=== PATIENT | female | born 1990 | race Asian ===

== ENCOUNTER 2018-01-07 19:12 | Emergency (ER) | payer MEDICAID ==
[~2018-01-07] VITALS: Ht 157.5 cm; Wt 63.6 kg
[2018-01-07 19:37] VITALS: BP 116/79
[2018-01-07 20:35] LABS: CLARITY,URINE Cloudy (Clear); COLOR,URINE Yellow (Yellow); GLUCOSE, URINE Negative (Neg); KETONES,URINE 15 mg/dl (Neg); LEUKOCYTE ESTERASE ,URINE Negative (Neg); NITRITES, URINE Negative (Neg); OCCULT BLOOD,URINE Small (Neg); PH,URINE >=9.0 (4.8-8.0); PROTEIN,URINE Negative (Neg)
[2018-01-07 20:36] LABS: UA COLLECTION TYPE CLN CATCH MIDSTREAM
[2018-01-07 20:41] LABS: BACTERIA,URINE NONE SEEN /HPF (Neg); MUCUS STRANDS NONE SEEN /LPF (Neg); SQUAMOUS EPITHELIAL CELL,UR MODERATE /LPF (FEW); WBC,URINE NONE SEEN /HPF (0-4)
[2018-01-07 20:42] LABS: AMORPHOUS PHOSPHATES 3+
[2018-01-07] MEDS ORDERED: HYDR-569 PO (20:45)
[2018-01-07] MEDS ORDERED: IBUP-1984 PO (20:45)
[2018-01-07] MEDS ORDERED: CEPH500C5 PO (20:45)
[2018-01-07] MEDS ORDERED: SULF1TAB49 PO (20:45)
== END 2018-01-07 20:51 | disposition home or self-care (01) ==
LOC: ER 19:14
DX: L02.31 Cutaneous abscess of buttock (principal); Z90.49 Acquired absence of other specified parts of digestive tract; Z79.899 Other long term (current) drug therapy; Z56.0 Unemployment, unspecified
CPT/HCPCS: 81001; 99283

== ENCOUNTER 2018-08-12 00:15 | Emergency (ER) | payer MEDICAID ==
[~2018-08-12] VITALS: Ht 157.5 cm; Wt 67.4 kg
[~2018-08-12 00:15] MED LIST: CEPH500C5 PO; HYDR-4383 PO
[2018-08-12 00:32] VITALS: BP 159/92
[2018-08-12 01:04] LABS: URINE HCG NEGATIVE (NEG)
[2018-08-12 01:07] LABS: CLARITY,URINE SLIGHTLY CLOUDY (Clear); COLOR,URINE YELLOW (Yellow); GLUCOSE, URINE NEGATIVE (Neg); KETONES,URINE >=80 mg/dl (Neg); LEUKOCYTE ESTERASE ,URINE NEGATIVE (Neg); NITRITES, URINE NEGATIVE (Neg); OCCULT BLOOD,URINE LARGE (Neg); PROTEIN,URINE 100 mg/dl (Neg); UROBILINOGEN,URINE 0.2 E.U/dL (0.2-1.0)
[2018-08-12 01:09] LABS: UA COLLECTION TYPE CLN CATCH MIDSTREAM
[2018-08-12 01:39] LABS: WBC,URINE 0-4 /HPF (0-4)
[2018-08-12 01:40] LABS: BACTERIA,URINE 2+ /HPF (Neg)
[2018-08-12 01:42] LABS: MUCUS STRANDS FEW /LPF (Neg); SQUAMOUS EPITHELIAL CELL,UR MODERATE /LPF (FEW)
[2018-08-12] MEDS ORDERED: HYDROmorphone inj. 0.5 MG/0.5 ML DISP.SYRIN IV PRN (02:05)
[2018-08-12] MEDS ORDERED: ketorolac trometh. 30mg/ml inj. IV ONE (02:05)
[2018-08-12] MEDS ORDERED: LORazepam 2 mg/ml vial IV ONE (02:05)
[2018-08-12] MEDS ORDERED: metoclopramide 5 mg/ml inj IV ONE (02:05)
[2018-08-12] MEDS ORDERED: diphenhydrAMINE 50 mg/ml inj IV ONE (02:05)
[2018-08-12] MEDS ORDERED: normal saline 1000ML IV soln IVB ONE ×3 (02:05→02:55)
[2018-08-12 02:32] LABS: ALANINE AMINOTRANSFERASE 26 U/L (12-78); ALBUMIN 4.7 G/DL (3.4-5.0); ALBUMIN/GLOBULIN RATIO 1.1 (1.1-1.5); ALKALINE PHOSPHATASE 63 IU/L (46-116); ANION GAP 21 (8-16); ASPARTATE AMINO TRANSFERASE 17 U/L (10-37); BILIRUBIN,TOTAL 1.3 MG/DL (0.1-1.0); BLOOD UREA NITROGEN 16 MG/DL (7-18); BUN/CREATININE RATIO 13.2 (6.6-38.0); CALCIUM 9.8 MG/DL (8.5-10.1); CHLORIDE 105 MMOL/L (99-107); CREATININE 1.21 MG/DL (0.40-0.90); GLUCOSE 136 MG/DL (70-104); LIPASE 79 U/L (73-393); SODIUM 145 MMOL/L (135-145); TOTAL CARBON DIOXIDE 19.2 MMOL/L (24-32); eGFR 54 ML/MIN
[2018-08-12 02:39] LABS: INR 1.1 INR
[2018-08-12] MEDS ORDERED: potassium Cl 20 mEq SR tablet PO STA (02:41)
[2018-08-12] MEDS ORDERED: ONDA4TAB12 PO (03:11)
[2018-08-12 03:37] LABS: BASOPHILS % (AUTO) 0.2 % (0-1); EOSINOPHILS % (AUTO) 0 % (0-6); HEMOGLOBIN 15.6 g/dl (12.0-16.0); LYMPHOCYTES # (AUTO) 0.6 X10'3 (1.1-4.8); LYMPHOCYTES % (AUTO) 6.2 % (21-51); MEAN CORPUSCULAR HEMOGLOBIN 31.9 PG (27.0-31.0); MEAN CORPUSCULAR HGB CONC 33.9 g/dL (33.0-36.5); MEAN CORPUSCULAR VOLUME 94.1 FL (78-98); MONOCYTES # (AUTO) 0.5 X10'3 (0-0.9); MONOCYTES % (AUTO) 5.5 % (2-12); NEUTROPHILS # (AUTO) 8.2 X10'3 (1.8-7.7); NEUTROPHILS % (AUTO) 88.1 % (42-75); PLATELET COUNT 319 X10'3 (140-440); RED BLOOD COUNT 4.89 X10'6 (4.20-5.60); RED CELL DISTRIBUTION WIDTH 12.4 % (11.5-14.5); WHITE BLOOD COUNT 9.3 X10'3 (4.5-11.0)
[2018-08-12 05:03] LABS: TOTAL CELLS COUNTED 100
[2018-08-12 05:04] LABS: PLATELET ESTIMATE NORMAL
== END 2018-08-12 03:26 | disposition home or self-care (01) ==
LOC: ER 00:16
DX: E86.0 Dehydration (principal); R11.2 Nausea with vomiting, unspecified; R19.7 Diarrhea, unspecified; R10.84 Generalized abdominal pain; Z56.0 Unemployment, unspecified; Z90.49 Acquired absence of other specified parts of digestive tract
CPT/HCPCS: 36415; 80053; 81001; 81025; 83690; 85025; 85610; 96374; 96375; 99283; J1200; J1885; J2060; J2765; J7030; 96361

== ENCOUNTER 2020-05-01 13:30 | Emergency (ER) | payer MEDICAID, OTHER ==
[~2020-05-01] VITALS: Ht 157.5 cm; Wt 72.7 kg
[~2020-05-01 13:30] MED LIST changes: -CEPH500C5 PO; +ONDA4TAB12 PO; +ONDA8TAB6 PO; +PANT-47 PO
[2020-05-01 14:09] LABS: BASOPHILS % (AUTO) 0.2 % (0-1); EOSINOPHILS % (AUTO) 0 % (0-6); HEMOGLOBIN 15.9 g/dl (12.0-16.0); LYMPHOCYTES # (AUTO) 0.7 X10'3 (1.1-4.8); LYMPHOCYTES % (AUTO) 7.7 % (21-51); MEAN CORPUSCULAR HEMOGLOBIN 32.8 PG (27.0-31.0); MEAN CORPUSCULAR HGB CONC 34.7 g/dL (33.0-36.5); MEAN CORPUSCULAR VOLUME 94.8 FL (78-98); MEAN PLATELET VOLUME 8.7 FL (7.4-10.4); MONOCYTES # (AUTO) 0.4 X10'3 (0-0.9); MONOCYTES % (AUTO) 4.7 % (2-12); NEUTROPHILS # (AUTO) 7.9 X10'3 (1.8-7.7); NEUTROPHILS % (AUTO) 87.4 % (42-75); PLATELET COUNT 346 X10'3 (140-440); RED BLOOD COUNT 4.85 X10'6 (4.20-5.60); RED CELL DISTRIBUTION WIDTH 13.5 % (11.5-14.5); WHITE BLOOD COUNT 9.1 X10'3 (4.5-11.0)
[2020-05-01 14:12] LABS: CLARITY,URINE CLEAR (Clear); COLOR,URINE YELLOW (Yellow); GLUCOSE, URINE NEGATIVE (Neg); KETONES,URINE 40 mg/dl (Neg); LEUKOCYTE ESTERASE ,URINE NEGATIVE (Neg); NITRITES, URINE NEGATIVE (Neg); OCCULT BLOOD,URINE TRACE-INTACT (Neg); PH,URINE >=9.0 (4.8-8.0); PROTEIN,URINE 30 mg/dl (Neg)
[2020-05-01 14:13] LABS: URINE HCG NEGATIVE (NEG)
[2020-05-01 14:21] LABS: UA COLLECTION TYPE CLN CATCH MIDSTREAM
[2020-05-01 14:22] LABS: BACTERIA,URINE FEW /HPF (Neg); MUCUS STRANDS MODERATE /LPF (Neg); SQUAMOUS EPITHELIAL CELL,UR MANY /LPF (FEW); WBC,URINE 0-4 /HPF (0-4)
[2020-05-01 14:24] LABS: ALANINE AMINOTRANSFERASE 24 U/L (12-78); ALBUMIN 4.8 G/DL (3.4-5.0); ALBUMIN/GLOBULIN RATIO 1.1 (1.1-1.5); ALKALINE PHOSPHATASE 70 IU/L (46-116); ANION GAP 12 (8-16); ASPARTATE AMINO TRANSFERASE 16 U/L (10-37); BILIRUBIN,TOTAL 0.7 MG/DL (0.1-1.0); BLOOD UREA NITROGEN 12 MG/DL (7-18); CALCIUM 9.9 MG/DL (8.5-10.1); CHLORIDE 105 MMOL/L (99-107); CREATININE 0.86 MG/DL (0.40-0.90); GLUCOSE 112 MG/DL (70-104); LIPASE 65 U/L (73-393); POTASSIUM 3.5 MMOL/L (3.5-5.1); SODIUM 140 MMOL/L (135-145); TOTAL CARBON DIOXIDE 22.6 MMOL/L (24-32); TOTAL PROTEIN 9.3 G/DL (6.4-8.2); eGFR 79 ML/MIN
[2020-05-01] MEDS ORDERED: normal saline 1000ML IV soln IVB ONE (14:40)
[2020-05-01] MEDS ORDERED: pantoprazole 40 MG vial IV ONE (14:40)
[2020-05-01 14:55] LABS: ETHANOL < 0.010 GM/DL (0.0-0.010)
[2020-05-01] MEDS ORDERED: morphine 2 MG/ML inj. syringe IV PRN (15:15)
[2020-05-01] MEDS ORDERED: LORazepam 2 mg/ml vial IV ONE (15:15)
[2020-05-01 15:30] LABS: MAGNESIUM 2.2 MG/DL (1.5-2.4)
[2020-05-01 16:18] LABS: URINE AMPHETAMINE SCREEN NEGATIVE (Neg); URINE BARBITUATE SCREEN NEGATIVE (Neg); URINE BENZODIAZEPINES SCREEN NEGATIVE (Neg); URINE CANNABINOID SCREEN POSITIVE (Neg); URINE COCAINE SCREEN NEGATIVE (Neg); URINE METHADONE SCREEN NEGATIVE (Neg); URINE OPIATE SCREEN NEGATIVE (Neg); URINE PHENCYCLIDINE SCREEN NEGATIVE (Neg)
[2020-05-01] MEDS ORDERED: PROM12.512 PO (17:40)
[2020-05-01] MEDS ORDERED: PANT20TA18 PO (17:40)
[2020-05-01 17:50] VITALS: BP 108/70
== END 2020-05-01 17:52 | disposition home or self-care (01) ==
LOC: ER 13:31
DX: K29.20 Alcoholic gastritis without bleeding (principal); K21.9 Gastro-esophageal reflux disease without esophagitis; F12.10 Cannabis abuse, uncomplicated; Z56.0 Unemployment, unspecified; Z79.899 Other long term (current) drug therapy
CPT/HCPCS: 36415; 80053; 80305; 80320; 81001; 81025; 83690; 83735; 85025; 96361; 96374; 96375; 99285; C9113; J2060; J2270; J7030

== ENCOUNTER 2020-07-11 16:36 | Emergency (ER) | payer MEDICAID ==
[~2020-07-11] VITALS: Ht 157.5 cm; Wt 72.7 kg
[~2020-07-11 16:36] MED LIST changes: +PANT20TA18 PO; +PROM12.512 PO
[2020-07-11] MEDS ORDERED: ondansetron/PF 4mg/2ml inj IV ONE (17:40)
[2020-07-11] MEDS ORDERED: pantoprazole 40 MG vial IV ONE (17:40)
[2020-07-11] MEDS ORDERED: famotidine/PF 10 mg/ml inj IV ONE (17:40)
[2020-07-11] MEDS ORDERED: normal saline 1000ML IV soln IVB ONE (17:40)
[2020-07-11 17:56] LABS: BASOPHILS % (AUTO) 0.2 % (0-1); EOSINOPHILS % (AUTO) 0 % (0-6); HEMATOCRIT 44.5 % (35.0-45.0); HEMOGLOBIN 15.2 g/dl (12.0-16.0); LYMPHOCYTES # (AUTO) 0.3 X10'3 (1.1-4.8); LYMPHOCYTES % (AUTO) 2.3 % (21-51); MEAN CORPUSCULAR HEMOGLOBIN 32.4 PG (27.0-31.0); MEAN CORPUSCULAR HGB CONC 34.1 g/dL (33.0-36.5); MEAN CORPUSCULAR VOLUME 95.1 FL (78-98); MEAN PLATELET VOLUME 8.6 FL (7.4-10.4); MONOCYTES # (AUTO) 0.6 X10'3 (0-0.9); MONOCYTES % (AUTO) 4.4 % (2-12); NEUTROPHILS # (AUTO) 13.4 X10'3 (1.8-7.7); NEUTROPHILS % (AUTO) 93.1 % (42-75); PLATELET COUNT 302 X10'3 (140-440); RED BLOOD COUNT 4.68 X10'6 (4.20-5.60); WHITE BLOOD COUNT 14.4 X10'3 (4.5-11.0)
[2020-07-11 18:19] LABS: COLOR,URINE YELLOW (Yellow); GLUCOSE, URINE NEGATIVE (Neg); KETONES,URINE >=80 mg/dl (Neg); LEUKOCYTE ESTERASE ,URINE NEGATIVE (Neg); NITRITES, URINE NEGATIVE (Neg); OCCULT BLOOD,URINE MODERATE (Neg); PH,URINE 8.5 (4.8-8.0); PROTEIN,URINE 100 mg/dl (Neg); UROBILINOGEN,URINE 0.2 E.U/dL (0.2-1.0)
[2020-07-11] MEDS ORDERED: ketorolac tromethamine 15mg/ml inj. IV ONE (18:20)
[2020-07-11] MEDS ORDERED: dicyclomine 10 MG capsule PO ONE (18:20)
[2020-07-11 18:22] LABS: ALANINE AMINOTRANSFERASE 27 U/L (12-78); ALBUMIN 4.8 G/DL (3.4-5.0); ALBUMIN/GLOBULIN RATIO 1.1 (1.1-1.5); ALKALINE PHOSPHATASE 63 IU/L (46-116); ANION GAP 15 (8-16); ASPARTATE AMINO TRANSFERASE 18 U/L (10-37); BLOOD UREA NITROGEN 12 MG/DL (7-18); BUN/CREATININE RATIO 13.2 (6.6-38.0); CALCIUM 9.2 MG/DL (8.5-10.1); CHLORIDE 104 MMOL/L (99-107); CREATININE 0.91 MG/DL (0.40-0.90); ETHANOL < 0.010 GM/DL (0.0-0.010); GLUCOSE 135 MG/DL (70-104); LIPASE < 50 U/L (73-393); SODIUM 143 MMOL/L (135-145); TOTAL CARBON DIOXIDE 23.9 MMOL/L (24-32); TOTAL PROTEIN 9.1 G/DL (6.4-8.2); eGFR 74 ML/MIN
[2020-07-11 18:29] LABS: CLARITY,URINE SLIGHTLY CLOUDY (Clear); UA COLLECTION TYPE CLN CATCH MIDSTREAM
[2020-07-11 18:30] LABS: BACTERIA,URINE FEW /HPF (Neg); MUCUS STRANDS MODERATE /LPF (Neg); SQUAMOUS EPITHELIAL CELL,UR FEW /LPF (FEW); WBC,URINE NONE SEEN /HPF (0-4)
[2020-07-11] MEDS ORDERED: potassium chloride 10mEq ER tablet PO STA (18:46)
[2020-07-11] MEDS ORDERED: diphenhydrAMINE 50 mg/ml inj IV ONE (18:50)
[2020-07-11] MEDS ORDERED: proCHLORperazine 10 MG/2 ml inj IV ONE (18:50)
[2020-07-11] MEDS ORDERED: potassium Cl 10 mEq/100mL bag IV ONE (18:50)
--- NOTE | 2020-07-11 19:54 | NUR ---
assumed care of patient resting in bed comfortably . all vss satble britta torres at bedside updating plan of care. no changes to previous assessment . pt awaiting kcl infusing to complete .
[2020-07-11] MEDS ORDERED: ONDA4TAB6 PO (20:10)
[2020-07-11] MEDS ORDERED: FAMO20TA47 PO (20:10)
[2020-07-11] MEDS ORDERED: DICY10CA88 PO (20:10)
[2020-07-11 20:36] VITALS: BP 112/68
== END 2020-07-11 20:34 | disposition home or self-care (01) ==
LOC: ER 16:37
DX: R10.13 Epigastric pain (principal); R11.10 Vomiting, unspecified; K21.9 Gastro-esophageal reflux disease without esophagitis; F12.90 Cannabis use, unspecified, uncomplicated; Z87.442 Personal history of urinary calculi; Z90.49 Acquired absence of other specified parts of digestive tract; Z56.0 Unemployment, unspecified; Z79.899 Other long term (current) drug therapy
CPT/HCPCS: 36415; 76700; 80053; 80320; 81001; 83690; 85025; 96361; 96374; 96375; 99285; C9113; J0780; J1200; J1885; J2405; J3480; J3490; J7030

== ENCOUNTER 2020-07-22 09:12 | Emergency (ER) | payer MEDICAID ==
[~2020-07-22] VITALS: Ht 157.5 cm; Wt 71.8 kg
[~2020-07-22 09:12] MED LIST changes: +DICY10CA88 PO; +FAMO20TA47 PO; +ONDA4TAB6 PO
[2020-07-22] MEDS ORDERED: mag hydrox/Alum hydrox/simeth 30ml oral suspension PO ONE (09:30)
[2020-07-22] MEDS ORDERED: normal saline 1000ml 1,000 ML IV ONE (09:30)
[2020-07-22] MEDS ORDERED: LIDOcaine Viscous 15ml cup MM ONE (09:30)
[2020-07-22] MEDS ORDERED: ondansetron 4mg rapidly disintigrating tab PO ONE (09:30)
[2020-07-22] MEDS ORDERED: pantoprazole 40 MG vial IV ONE (09:45)
[2020-07-22 09:47] LABS: BASOPHILS # (AUTO) 0.1 X10'3 (0-0.2); EOSINOPHILS % (AUTO) 0.2 % (0-6); HEMATOCRIT 46.1 % (35.0-45.0); HEMOGLOBIN 15.4 g/dl (12.0-16.0); LYMPHOCYTES # (AUTO) 0.8 X10'3 (1.1-4.8); LYMPHOCYTES % (AUTO) 10.2 % (21-51); MEAN CORPUSCULAR HEMOGLOBIN 31.8 PG (27.0-31.0); MEAN CORPUSCULAR HGB CONC 33.5 g/dL (33.0-36.5); MEAN CORPUSCULAR VOLUME 94.9 FL (78-98); MEAN PLATELET VOLUME 8.7 FL (7.4-10.4); MONOCYTES # (AUTO) 0.5 X10'3 (0-0.9); MONOCYTES % (AUTO) 5.8 % (2-12); NEUTROPHILS # (AUTO) 6.4 X10'3 (1.8-7.7); NEUTROPHILS % (AUTO) 82.8 % (42-75); PLATELET COUNT 309 X10'3 (140-440); RED BLOOD COUNT 4.85 X10'6 (4.20-5.60); RED CELL DISTRIBUTION WIDTH 13.5 % (11.5-14.5); WHITE BLOOD COUNT 7.8 X10'3 (4.5-11.0)
[2020-07-22 10:01] LABS: ALANINE AMINOTRANSFERASE 48 U/L (12-78); ALBUMIN 4.3 G/DL (3.4-5.0); ALKALINE PHOSPHATASE 62 IU/L (46-116); ANION GAP 14 (8-16); ASPARTATE AMINO TRANSFERASE 61 U/L (10-37); BILIRUBIN,TOTAL 0.4 MG/DL (0.1-1.0); BLOOD UREA NITROGEN 11 MG/DL (7-18); BUN/CREATININE RATIO 12.4 (6.6-38.0); CHLORIDE 104 MMOL/L (99-107); CREATININE 0.89 MG/DL (0.40-0.90); GLUCOSE 123 MG/DL (70-104); LIPASE 99 U/L (73-393); POTASSIUM 3.5 MMOL/L (3.5-5.1); SODIUM 143 MMOL/L (135-145); TOTAL CARBON DIOXIDE 24.7 MMOL/L (24-32); TOTAL PROTEIN 8.4 G/DL (6.4-8.2); eGFR 76 ML/MIN
[2020-07-22] MEDS ORDERED: diphenhydrAMINE 50 mg/ml inj IV ONE (10:20)
[2020-07-22] MEDS ORDERED: haloperidol lactate 5mg/ml inj IM ONE ×2 (10:20→10:30)
[2020-07-22] MEDS ORDERED: magnesium 2GM in 50ml NS 50 ML IV ONE (10:30)
[2020-07-22] MEDS ORDERED: ringers solution, lactated 1000ml IV soln IV ONE (10:30)
[2020-07-22] MEDS ORDERED: thiamine inj. 100 MG in normal saline 100ml IV soln 99 ML IV ONE (10:30)
[2020-07-22] MEDS ORDERED: phenobarbital inj 260 MG in normal saline 100ml IV soln 100 ML IV ONE (10:30)
[2020-07-22] MEDS ORDERED: PANT20TA18 PO (11:21)
--- NOTE | 2020-07-22 11:37 | NUR ---
spoke to britta duarte regarding pt lactate ringer iv infusion and need of mag as per britta duarte not needed and given verbal order for cancelling mag and lactate ringer and d/c pt .
[2020-07-22 11:50] VITALS: BP 127/94
== END 2020-07-22 11:52 | disposition home or self-care (01) ==
LOC: ER 09:12
DX: K29.20 Alcoholic gastritis without bleeding (principal); R10.13 Epigastric pain; R11.2 Nausea with vomiting, unspecified; K21.9 Gastro-esophageal reflux disease without esophagitis; F12.90 Cannabis use, unspecified, uncomplicated; Z87.442 Personal history of urinary calculi; Z90.89 Acquired absence of other organs; Z72.89 Other problems related to lifestyle; Z56.0 Unemployment, unspecified; Z79.899 Other long term (current) drug therapy
CPT/HCPCS: 36415; 80053; 83690; 85025; 96361; 96365; 96372; 96375; 99284; C9113; J1200; J1630; J3475; J7030

== ENCOUNTER 2020-08-19 10:30 | Emergency (ER) | payer MEDICAID ==
[~2020-08-19] VITALS: Ht 157.5 cm; Wt 72.7 kg
[2020-08-19] MEDS ORDERED: normal saline 1000ML IV soln IVB ONE (11:10)
[2020-08-19] MEDS ORDERED: diphenhydrAMINE 50 mg/ml inj IV ONE (11:10)
[2020-08-19] MEDS ORDERED: pantoprazole 40 MG vial IV ONE (11:10)
[2020-08-19] MEDS ORDERED: mag hydrox/Alum hydrox/simeth 30ml oral suspension PO ONE (11:10)
[2020-08-19] MEDS ORDERED: ondansetron/PF 4mg/2ml inj IV ONE (11:10)
[2020-08-19] MEDS ORDERED: haloperidol lactate 5mg/ml inj IM ONE ×2 (11:10→12:40)
[2020-08-19 11:48] LABS: BASOPHILS % (AUTO) 0.2 % (0-1); EOSINOPHILS % (AUTO) 0 % (0-6); HEMOGLOBIN 15.4 g/dl (12.0-16.0); LYMPHOCYTES # (AUTO) 0.7 X10'3 (1.1-4.8); LYMPHOCYTES % (AUTO) 6.7 % (21-51); MEAN CORPUSCULAR HEMOGLOBIN 32.1 PG (27.0-31.0); MEAN CORPUSCULAR HGB CONC 34.3 g/dL (33.0-36.5); MEAN CORPUSCULAR VOLUME 93.8 FL (78-98); MEAN PLATELET VOLUME 7.9 FL (7.4-10.4); MONOCYTES # (AUTO) 0.3 X10'3 (0-0.9); MONOCYTES % (AUTO) 3.4 % (2-12); NEUTROPHILS # (AUTO) 8.8 X10'3 (1.8-7.7); NEUTROPHILS % (AUTO) 89.7 % (42-75); PLATELET COUNT 304 X10'3 (140-440); RED CELL DISTRIBUTION WIDTH 13.2 % (11.5-14.5); WHITE BLOOD COUNT 9.8 X10'3 (4.5-11.0)
[2020-08-19 12:04] LABS: ALANINE AMINOTRANSFERASE 29 U/L (12-78); ALBUMIN 4.2 G/DL (3.4-5.0); ALKALINE PHOSPHATASE 62 IU/L (46-116); ANION GAP 17 (8-16); ASPARTATE AMINO TRANSFERASE 21 U/L (10-37); BILIRUBIN,TOTAL 0.5 MG/DL (0.1-1.0); BLOOD UREA NITROGEN 13 MG/DL (7-18); BUN/CREATININE RATIO 13.8 (6.6-38.0); CALCIUM 9.1 MG/DL (8.5-10.1); CHLORIDE 104 MMOL/L (99-107); CREATININE 0.94 MG/DL (0.40-0.90); GLUCOSE 124 MG/DL (70-104); LIPASE 81 U/L (73-393); POTASSIUM 3.4 MMOL/L (3.5-5.1); SODIUM 141 MMOL/L (135-145); TOTAL CARBON DIOXIDE 20.5 MMOL/L (24-32); TOTAL PROTEIN 8.4 G/DL (6.4-8.2); eGFR 71 ML/MIN
[2020-08-19] MEDS ORDERED: ONDA4TAB12 PO (12:04)
[2020-08-19] MEDS ORDERED: proCHLORperazine 10 MG/2 ml inj IV ONE (12:40)
[2020-08-19] MEDS ORDERED: normal saline 1000ml 1,000 ML IV ONE (12:40)
[2020-08-19 14:21] LABS: URINE HCG NEGATIVE (NEG)
[2020-08-19 14:24] LABS: CLARITY,URINE SLIGHTLY CLOUDY (Clear); COLOR,URINE YELLOW (Yellow); GLUCOSE, URINE NEGATIVE (Neg); KETONES,URINE 15 mg/dl (Neg); LEUKOCYTE ESTERASE ,URINE NEGATIVE (Neg); NITRITES, URINE NEGATIVE (Neg); OCCULT BLOOD,URINE SMALL (Neg); PH,URINE 8.5 (4.8-8.0); PROTEIN,URINE NEGATIVE (Neg); UROBILINOGEN,URINE 0.2 E.U/dL (0.2-1.0)
[2020-08-19 14:30] LABS: UA COLLECTION TYPE CLN CATCH MIDSTREAM
[2020-08-19 14:36] LABS: MUCUS STRANDS FEW /LPF (Neg); SQUAMOUS EPITHELIAL CELL,UR MANY /LPF (FEW)
[2020-08-19 14:37] LABS: BACTERIA,URINE NONE SEEN /HPF (Neg); RBC,URINE 0-2 /HPF (0-2); WBC,URINE 0-4 /HPF (0-4)
[2020-08-19 15:09] VITALS: BP 101/67
== END 2020-08-19 15:14 | disposition home or self-care (01) ==
LOC: ER 10:31
DX: K29.20 Alcoholic gastritis without bleeding (principal); R11.2 Nausea with vomiting, unspecified; R10.13 Epigastric pain; E87.6 Hypokalemia; K21.9 Gastro-esophageal reflux disease without esophagitis; F12.90 Cannabis use, unspecified, uncomplicated; Z87.442 Personal history of urinary calculi; Z90.89 Acquired absence of other organs; Z72.89 Other problems related to lifestyle; Z56.0 Unemployment, unspecified; Z79.899 Other long term (current) drug therapy
CPT/HCPCS: 36415; 80053; 81001; 81025; 83690; 85025; 96361; 96372; 96374; 96375; 99284; C9113; J0780; J1200; J1630; J2405; J7030

== ENCOUNTER 2020-10-17 22:08 | Emergency (ER) | payer MEDICAID ==
[~2020-10-17] VITALS: Ht 157.5 cm; Wt 72.7 kg
[2020-10-17] MEDS ORDERED: capsaicin 0.025% 60gm cream TP STA (22:18)
[2020-10-17] MEDS ORDERED: normal saline 1000ML IV soln IVB ONE (22:20)
[2020-10-17] MEDS ORDERED: diphenhydrAMINE 50 mg/ml inj IV ONE (22:20)
[2020-10-17] MEDS ORDERED: haloperidol decanoate***LONG-ACTING*** 100mg/ml **IM only** inj. IM ONE (22:20)
[2020-10-17] MEDS ORDERED: haloperidol decanoate 50mg/ml 1ml**long-acting** injection IM ONE (22:35)
[2020-10-17 22:45] LABS: RED CELL DISTRIBUTION WIDTH 13.3 % (11.5-14.5)
[2020-10-17 22:46] LABS: BASOPHILS % (AUTO) 0.3 % (0-1); EOSINOPHILS % (AUTO) 0 % (0-6); HEMATOCRIT 42.5 % (35.0-45.0); HEMOGLOBIN 14.7 g/dl (12.0-16.0); LYMPHOCYTES # (AUTO) 1.1 X10'3 (1.1-4.8); LYMPHOCYTES % (AUTO) 8.7 % (21-51); MEAN CORPUSCULAR HEMOGLOBIN 32.8 PG (27.0-31.0); MEAN CORPUSCULAR HGB CONC 34.7 g/dL (33.0-36.5); MEAN CORPUSCULAR VOLUME 94.6 FL (78-98); MEAN PLATELET VOLUME 8.6 FL (7.4-10.4); MONOCYTES # (AUTO) 0.9 X10'3 (0-0.9); MONOCYTES % (AUTO) 7.1 % (2-12); NEUTROPHILS # (AUTO) 10.4 X10'3 (1.8-7.7); NEUTROPHILS % (AUTO) 83.9 % (42-75); PLATELET COUNT 315 X10'3 (140-440); RED BLOOD COUNT 4.49 X10'6 (4.20-5.60); WHITE BLOOD COUNT 12.4 X10'3 (4.5-11.0)
[2020-10-17] MEDS ORDERED: haloperidol lactate 5mg/ml inj IM STA (22:49)
[2020-10-17 22:55] LABS: ALANINE AMINOTRANSFERASE 28 U/L (12-78); ALBUMIN 4.5 G/DL (3.4-5.0); ALBUMIN/GLOBULIN RATIO 1.1 (1.1-1.5); ALKALINE PHOSPHATASE 65 IU/L (46-116); ANION GAP 14 (8-16); ASPARTATE AMINO TRANSFERASE 17 U/L (10-37); BILIRUBIN,TOTAL 0.9 MG/DL (0.1-1.0); BLOOD UREA NITROGEN 9 MG/DL (7-18); BUN/CREATININE RATIO 11.4 (6.6-38.0); CALCIUM 9.7 MG/DL (8.5-10.1); CHLORIDE 105 MMOL/L (99-107); CREATININE 0.79 MG/DL (0.40-0.90); GLUCOSE 115 MG/DL (70-104); POTASSIUM 3.5 MMOL/L (3.5-5.1); SODIUM 142 MMOL/L (135-145); TOTAL CARBON DIOXIDE 23.4 MMOL/L (24-32); TOTAL PROTEIN 8.6 G/DL (6.4-8.2); eGFR 87 ML/MIN
[2020-10-18 00:37] VITALS: BP 97/59
== END 2020-10-18 00:45 | disposition home or self-care (01) ==
LOC: ER 22:09
DX: R11.2 Nausea with vomiting, unspecified (principal); R10.9 Unspecified abdominal pain; K21.9 Gastro-esophageal reflux disease without esophagitis; F12.90 Cannabis use, unspecified, uncomplicated; Z87.442 Personal history of urinary calculi; Z90.49 Acquired absence of other specified parts of digestive tract; Z72.89 Other problems related to lifestyle; Z56.0 Unemployment, unspecified; Z79.899 Other long term (current) drug therapy
CPT/HCPCS: 80053; 85025; 96372; 96374; 99284; J1200; J1630; J7030; 36415

== ENCOUNTER 2020-12-26 08:50 | Emergency (ER) | payer MEDICAID ==
[~2020-12-26] VITALS: Ht 154.9 cm; Wt 75.6 kg
[2020-12-26] MEDS: normal saline 1000ML IV soln IVB ONE ×2 (09:15→10:23)
[2020-12-26] MEDS ORDERED: ondansetron/PF 4mg/2ml inj IV ONE (09:15)
[2020-12-26] MEDS ORDERED: famotidine/PF 10 mg/ml inj IV ONE (09:55)
[2020-12-26] MEDS ORDERED: normal saline 1000ML IV soln IVB ONE (09:55)
[2020-12-26] MEDS ORDERED: LORazepam 2 mg/ml vial IV ONE (09:55)
[2020-12-26] MEDS ORDERED: haloperidol lactate 5mg/ml inj IM ONE (09:55)
[2020-12-26 10:06] LABS: CLARITY,URINE SLIGHTLY CLOUDY (Clear); COLOR,URINE YELLOW (Yellow); GLUCOSE, URINE NEGATIVE (Neg); KETONES,URINE 15 mg/dl (Neg); LEUKOCYTE ESTERASE ,URINE NEGATIVE (Neg); NITRITES, URINE NEGATIVE (Neg); OCCULT BLOOD,URINE TRACE-INTACT (Neg); PH,URINE 8.5 (4.8-8.0); PROTEIN,URINE 30 mg/dl (Neg); UROBILINOGEN,URINE 0.2 E.U/dL (0.2-1.0)
[2020-12-26 10:07] LABS: URINE HCG NEGATIVE (NEG)
[2020-12-26 10:08] LABS: BASOPHILS % (AUTO) 0.3 % (0-1); EOSINOPHILS % (AUTO) 0 % (0-6); HEMATOCRIT 44.9 % (35.0-45.0); HEMOGLOBIN 15.5 g/dl (12.0-16.0); LYMPHOCYTES # (AUTO) 0.8 X10'3 (1.1-4.8); LYMPHOCYTES % (AUTO) 7.1 % (21-51); MEAN CORPUSCULAR HEMOGLOBIN 32.2 PG (27.0-31.0); MEAN CORPUSCULAR HGB CONC 34.5 g/dL (33.0-36.5); MEAN CORPUSCULAR VOLUME 93.6 FL (78-98); MEAN PLATELET VOLUME 8.2 FL (7.4-10.4); MONOCYTES # (AUTO) 0.6 X10'3 (0-0.9); MONOCYTES % (AUTO) 5.4 % (2-12); NEUTROPHILS # (AUTO) 10.2 X10'3 (1.8-7.7); NEUTROPHILS % (AUTO) 87.2 % (42-75); PLATELET COUNT 352 X10'3 (140-440); RED CELL DISTRIBUTION WIDTH 13.7 % (11.5-14.5); WHITE BLOOD COUNT 11.7 X10'3 (4.5-11.0)
[2020-12-26 10:09] LABS: UA COLLECTION TYPE CLN CATCH MIDSTREAM
[2020-12-26 10:14] LABS: BACTERIA,URINE 1+ /HPF (Neg); WBC,URINE 0-4 /HPF (0-4)
[2020-12-26 10:15] LABS: AMORPHOUS PHOSPHATES 2+; MUCUS STRANDS MODERATE /LPF (Neg); SQUAMOUS EPITHELIAL CELL,UR MANY /LPF (FEW)
[2020-12-26 10:20] LABS: ALANINE AMINOTRANSFERASE 27 U/L (12-78); ALBUMIN 4.5 G/DL (3.4-5.0); ALBUMIN/GLOBULIN RATIO 1.1 (1.1-1.5); ALKALINE PHOSPHATASE 58 IU/L (46-116); ANION GAP 19 (8-16); ASPARTATE AMINO TRANSFERASE 24 U/L (10-37); BILIRUBIN,TOTAL 0.8 MG/DL (0.1-1.0); BLOOD UREA NITROGEN 12 MG/DL (7-18); BUN/CREATININE RATIO 14.6 (6.6-38.0); CALCIUM 9.3 MG/DL (8.5-10.1); CHLORIDE 107 MMOL/L (99-107); CREATININE 0.82 MG/DL (0.40-0.90); GLUCOSE 111 MG/DL (70-104); LIPASE 62 U/L (73-393); MAGNESIUM 2.2 MG/DL (1.5-2.4); POTASSIUM 3.4 MMOL/L (3.5-5.1); SODIUM 144 MMOL/L (135-145); TOTAL CARBON DIOXIDE 17.8 MMOL/L (24-32); TOTAL PROTEIN 8.7 G/DL (6.4-8.2); eGFR 83 ML/MIN
[2020-12-26 10:24] LABS: URINE AMPHETAMINE SCREEN NEGATIVE (Neg); URINE BARBITUATE SCREEN NEGATIVE (Neg); URINE BENZODIAZEPINES SCREEN NEGATIVE (Neg); URINE CANNABINOID SCREEN POSITIVE (Neg); URINE COCAINE SCREEN NEGATIVE (Neg); URINE METHADONE SCREEN NEGATIVE (Neg); URINE OPIATE SCREEN NEGATIVE (Neg); URINE PHENCYCLIDINE SCREEN NEGATIVE (Neg)
[2020-12-26] MEDS ORDERED: METO-292 PO (10:52)
[2020-12-26 13:04] VITALS: BP 113/72
== END 2020-12-26 13:00 | disposition home or self-care (01) ==
LOC: ER 08:51
DX: R11.2 Nausea with vomiting, unspecified (principal); R10.13 Epigastric pain; K21.9 Gastro-esophageal reflux disease without esophagitis; Z87.442 Personal history of urinary calculi; F12.10 Cannabis abuse, uncomplicated; Z56.0 Unemployment, unspecified; Z79.899 Other long term (current) drug therapy
CPT/HCPCS: 36415; 80053; 80305; 81001; 81025; 83690; 83735; 85025; 93005; 96361; 96372; 96374; 96375; 99284; J1630; J2060; J2405; J3490; J7030

== ENCOUNTER 2021-07-14 17:25 | Emergency (ER) | payer MEDICAID ==
[~2021-07-14] VITALS: Ht 157.5 cm; Wt 72.7 kg
[~2021-07-14 17:25] MED LIST changes: +METO-292 PO
[2021-07-14 17:49] VITALS: BP 125/84
[2021-07-14] MEDS ORDERED: PRED10TA23 PO (17:56)
== END 2021-07-14 18:02 | disposition home or self-care (01) ==
LOC: ER 17:25
DX: R21 Rash and other nonspecific skin eruption (principal); K21.9 Gastro-esophageal reflux disease without esophagitis; F12.90 Cannabis use, unspecified, uncomplicated; Z87.442 Personal history of urinary calculi; Z90.89 Acquired absence of other organs; Z72.89 Other problems related to lifestyle; Z56.0 Unemployment, unspecified; Z79.899 Other long term (current) drug therapy
CPT/HCPCS: 99283

== ENCOUNTER 2021-10-21 17:40 | Emergency (ER) | payer MEDICAID ==
[~2021-10-21] VITALS: Ht 157.5 cm; Wt 72.0 kg
[2021-10-21] MEDS ORDERED: TRIA15CR61 TOP (18:05)
[2021-10-21 18:10] VITALS: BP 115/81
== END 2021-10-21 18:22 | disposition home or self-care (01) ==
LOC: ER 17:41
DX: L30.9 Dermatitis, unspecified (principal); K21.9 Gastro-esophageal reflux disease without esophagitis; F12.10 Cannabis abuse, uncomplicated; Z87.442 Personal history of urinary calculi; Z90.49 Acquired absence of other specified parts of digestive tract
CPT/HCPCS: 99283

== ENCOUNTER 2023-05-21 08:20 | Emergency (ER) | payer MEDICAID ==
[~2023-05-21] VITALS: Ht 154.9 cm; Wt 60.0 kg
[~2023-05-21 08:20] MED LIST changes: +TRIA15CR61 TOP
[2023-05-21 08:25] VITALS: TEMP 97.3
[2023-05-21] MEDS ORDERED: morphine 4 MG/ML inj SYRINge IV PRN (08:40)
[2023-05-21] MEDS ORDERED: ondansetron/PF 4mg/2ml inj IV ONE (08:40)
[2023-05-21] MEDS ORDERED: normal saline 1000ML IV soln IVB ONE (08:40)
[2023-05-21 09:27] LABS: HEMOGLOBIN 13.9 g/dl (12.0-16.0); LYMPHOCYTES # (AUTO) 0.5 X10'3 (1.1-4.8); MEAN PLATELET VOLUME 8.1 FL (7.4-10.4); MONOCYTES # (AUTO) 0.3 X10'3 (0-0.9); WHITE BLOOD COUNT 7.3 X10'3 (4.5-11.0)
[2023-05-21 09:30] LABS: BASOPHILS % (AUTO) 0.6 % (0-1); EOSINOPHILS % (AUTO) 0.1 % (0-6); HEMATOCRIT 41.1 % (35.0-45.0); LYMPHOCYTES % (AUTO) 6.9 % (21-51); MEAN CORPUSCULAR HEMOGLOBIN 34.3 PG (27.0-31.0); MEAN CORPUSCULAR HGB CONC 33.7 g/dL (33.0-36.5); MEAN CORPUSCULAR VOLUME 101.8 FL (78-98); MONOCYTES % (AUTO) 4.2 % (2-12); NEUTROPHILS # (AUTO) 6.4 X10'3 (1.8-7.7); NEUTROPHILS % (AUTO) 88.2 % (42-75); PLATELET COUNT 287 X10'3 (140-440); RED BLOOD COUNT 4.04 X10'6 (4.20-5.60); RED CELL DISTRIBUTION WIDTH 13.6 % (11.5-14.5)
[2023-05-21 09:46] LABS: URINE HCG NEGATIVE (NEG)
[2023-05-21 09:51] LABS: ALANINE AMINOTRANSFERASE 17 U/L (12-78); ALBUMIN 3.5 G/DL (3.4-5.0); ALKALINE PHOSPHATASE 42 IU/L (46-116); ANION GAP 10 (8-16); ASPARTATE AMINO TRANSFERASE 24 U/L (10-37); BILIRUBIN,TOTAL 0.9 MG/DL (0.1-1.0); BLOOD UREA NITROGEN 9 MG/DL (7-18); BUN/CREATININE RATIO 12.3 (10.0-20.0); CALCIUM 8.3 MG/DL (8.5-10.1); CHLORIDE 107 MMOL/L (99-107); CREATININE 0.73 MG/DL (0.40-0.90); GLUCOSE 97 MG/DL (70-104); LIPASE 19 U/L (16-77); POTASSIUM 3.3 MMOL/L (3.5-5.1); SODIUM 139 MMOL/L (135-145); TOTAL CARBON DIOXIDE 21.9 MMOL/L (24-32); TOTAL PROTEIN 6.9 G/DL (6.4-8.2); eCRCL 84 ML/MIN; eGFR > 90 ML/MIN
[2023-05-21 09:51] LABS: BILIRUBIN,URINE NEGATIVE (Neg); COLOR,URINE YELLOW (Yellow); GLUCOSE, URINE NEGATIVE (Neg); KETONES,URINE 40 mg/dl (Neg); LEUKOCYTE ESTERASE ,URINE NEGATIVE (Neg); NITRITES, URINE NEGATIVE (Neg); OCCULT BLOOD,URINE SMALL (Neg); PH,URINE 8.5 (4.8-8.0); PROTEIN,URINE NEGATIVE (Neg); UROBILINOGEN,URINE 0.2 E.U/dL (0.2-1.0)
[2023-05-21 09:56] LABS: CLARITY,URINE SLIGHTLY CLOUDY (Clear); UA COLLECTION TYPE CLN CATCH MIDSTREAM
[2023-05-21 09:57] LABS: MUCUS STRANDS MODERATE /LPF (Neg); SQUAMOUS EPITHELIAL CELL,UR MANY /LPF (FEW)
[2023-05-21 09:58] LABS: BACTERIA,URINE FEW /HPF (Neg); WBC,URINE 0-4 /HPF (0-4)
[2023-05-21] MEDS ORDERED: ONDA4TAB12 PO (11:51)
[2023-05-21] MEDS ORDERED: LANS30CA37 PO (11:51)
[2023-05-21 12:09] VITALS: BP 99/67; PULSE 87; RESP 14; O2SAT 95
== END 2023-05-21 12:08 | disposition home or self-care (01) ==
LOC: ER 08:20
DX: R11.10 Vomiting, unspecified (principal); R10.9 Unspecified abdominal pain; K21.9 Gastro-esophageal reflux disease without esophagitis; F12.10 Cannabis abuse, uncomplicated; Z79.899 Other long term (current) drug therapy
CPT/HCPCS: 36415; 74176; 76700; 80053; 81001; 81025; 83690; 85025; 96361; 96374; 96375; 99285; J2270; J2405; J7030; A4353

== ENCOUNTER 2023-10-14 07:32 | Emergency (ER) | payer MEDICAID ==
[~2023-10-14] VITALS: Ht 154.9 cm; Wt 57.0 kg
[~2023-10-14 07:32] MED LIST changes: +LANS30CA37 PO
[2023-10-14 07:39] VITALS: TEMP 97.6
[2023-10-14] MEDS ORDERED: ondansetron/PF 4mg/2ml inj IV ONE (08:15)
[2023-10-14 08:17] LABS: URINE HCG NEGATIVE (NEG)
[2023-10-14] MEDS: normal saline 1000ML IV soln IVB ONE ×2 (08:20→08:45)
[2023-10-14] MEDS: metoclopramide 5 mg/ml inj IV ONE (08:45)
[2023-10-14] MEDS: diphenhydrAMINE 50 mg/ml inj IV ONE (08:45)
[2023-10-14] MEDS: pantoprazole 40 MG vial IV ONE (08:48)
[2023-10-14 10:15] VITALS: BP 110/71; PULSE 76; RESP 15; O2SAT 99
[2023-10-14] MEDS ORDERED: OMEP40CA21 PO (10:20)
== END 2023-10-14 10:34 | disposition home or self-care (01) ==
LOC: ER 07:32
DX: K29.00 Acute gastritis without bleeding (principal); K21.9 Gastro-esophageal reflux disease without esophagitis; Z56.0 Unemployment, unspecified; F12.90 Cannabis use, unspecified, uncomplicated; Z87.442 Personal history of urinary calculi; Z72.89 Other problems related to lifestyle; Z90.49 Acquired absence of other specified parts of digestive tract; Z79.899 Other long term (current) drug therapy; Z79.2 Long term (current) use of antibiotics
CPT/HCPCS: 81025; 96361; 96374; 96375; 99284; C9113; J1200; J2765; J7030